=== PATIENT | female | born 1985 ===

== ENCOUNTER 2019-05-11 07:50 | Outpatient (CLI) | payer OTHER ==
[~2019-05-11] VITALS: Ht 152.4 cm; Wt 86.2 kg
== END 2019-05-11 08:10 | disposition home or self-care (01) ==
LOC: OFIC 805 07:50
DX: K11.8 Other diseases of salivary glands (principal); R49.0 Dysphonia; M54.2 Cervicalgia

== ENCOUNTER 2019-08-16 07:20 | Outpatient (CLI) | payer OTHER ==
[~2019-08-16] VITALS: Ht 152.4 cm; Wt 86.2 kg
== END 2019-08-16 08:00 | disposition home or self-care (01) ==
LOC: OFIC 805 07:20
DX: K11.8 Other diseases of salivary glands (principal)